=== PATIENT | male | born 1955 | race Caucasian/White ===

== ENCOUNTER 2018-04-29 05:20 | Day surgery (SDC) | payer OTHER ==
[~2018-04-29] VITALS: Ht 162.6 cm; Wt 75.0 kg
--- NOTE | ~2018-04-29 | OP ---
PATIENT NAME: ARIANE FLORES MEDICAL RECORD: [id number] :55 LOCATION:D.OPS ADMISSION DATE: SURGEON: CHLOE DENNIS MD DATE OF OPERATION: 04/29/2018 PREOPERATIVE DIAGNOSES: 1. Gastroesophageal reflux. 2. Band-like upper abdominal pain. 3. Postprandial nausea. 4. Dysphagia. 4. Hematemesis. POSTOPERATIVE DIAGNOSES: 1. Gastroesophageal reflux. 2. Band-like upper abdominal pain. 3. Postprandial nausea. 4. Dysphagia. 4. Hematemesis. 5. Multiple shallow linear ulcers in the antrum of the stomach. 6. Large hiatal hernia. PROCEDURES: 1. Esophagogastroduodenoscopy with antral biopsies. 2. Esophageal dilation to 54-Wolof with a vgxetmx-cjb-phhwuaam balloon. SURGEON: Chloe Dennis MD NURSE RECRUITER: None. BLOOD LOSS: Minimal. ANESTHESIA: IV sedation. COMPLICATIONS: None. The risks, possible complications, and alternatives to the procedure were explained to the patient. He elects to proceed. ENDOSCOPIC COURSE: The patient was conveyed to the endoscopy suite electively on 04/29/2018. IV sedation was induced by the anesthesia staff. A bite block was inserted. A gastroscope was inserted into the mouth. It was advanced easily into the hypopharynx. The esophagus was easily intubated as were the stomach and duodenum. Upon withdrawal, retroflexed and angulus views were obtained. Antral biopsies were obtained. I advanced the rwwheud-giw-boiqsyjg balloon. I then performed sequential balloon dilations of the entire esophagus to 54-Wolof. The balloon dilator and the gastroscope were removed. I then readvanced the gastroscope and examined the esophagus and stomach. There had been no evidence of false passage or perforation. The endoscope was then withdrawn under direct vision. I am going to recommend that the patient undergo an abdominal ultrasound as I really did not find a reason for his postprandial nausea and vomiting other than the linear ulcers, which could account for his hematemesis. I am going to recommend that his Prilosec be changed from a p.r.n. basis to a nightly basis. I will see the patient on a p.r.n. basis. There is no need for the patient to OPERATIVE REPORT [id number] ARIANE FLORES follow up with me in the office unless he develops a complication related to this operative procedure. TRANSINT:[id number] Voice Confirmation ID: [id number] DOCUMENT ID: [id number] CHLOE DENNIS MD at 1525 CC: KENDELL SEPULVEDA THOMAS NATHAN MD, CHLOE TORRE MD, SHILPA,[id number] JENNIFERJIM DICTATION DATE: 04/29/18920 NEWS WRITER: 04/29/18 1052 [facility] 04/29/18 [place] [id number]
--- NOTE | ~2018-04-29 | HP ---
PATIENT: ARIANE FLORES MEDICAL RECORD: [id number] ACCOUNT: [id number] LOCATION:DNED : 55 ADMISSION DATE: 04/29/18 PCP: No PCP HISTORY AND PHYSICAL EXAMINATION HISTORY OF PRESENT ILLNESS: The patient is here for EGD with esophageal dilation. He has had hematemesis. Also, dysphagia at the level of the lower esophageal sphincter. Also abdominal pain. He states he has band-like abdominal pain after eating food. He states also that he has reflux, particularly at night. He sleeps on 2 pillows. He does have some degree of volume reflux and refluxes up into the back of his throat at night. He is only taking his omeprazole on a p.r.n. basis. The EGD was to be performed at the assisted, but we were unable to get an IV started and for that reason, the patient has been moved to the hospital for his endoscopic procedure. PAST MEDICAL AND SURGICAL HISTORY: TB, hypertension, reactive airway disease, asthma, gastroesophageal reflux, urinary retention. HOME MEDICINES: Acetaminophen, atorvastatin, ibuprofen, lisinopril, Flomax, omeprazole, Singulair. PHYSICAL EXAMINATION: GENERAL: The patient does not appear acutely ill. He does appear chronically ill. VITAL SIGNS: Reviewed. EARS: External ears appear normal. EYES: Extraocular movements are intact. NECK: Trachea is midline. CHEST: No intercostal retractions. PULMONARY: Nonlabored, no stridor. ABDOMEN: Nontender. IMPRESSION: 1. Gastroesophageal reflux. 2. Hematemesis. 3. Dysphagia. 4. Band-like abdominal pain. PLAN: EGD with esophageal dilation. TRANSINT:[id number] Voice Confirmation ID: [id number] DOCUMENT ID: [id number] CHLOE DENNIS MD at 1525 CC: KENDELL SEPULVEDA THOMAS NATHAN MD, CHLOE TORRE MD, SHILPA,[id number] JIM ALVAREZ DICTATION DATE: 04/29/18830 [employer] SUPERVISOR: 04/29/18 1012 [facility] 04/29/18 [place] [id number] [place] [address]
[2018-04-29] MEDS ORDERED: ZESTRIL20 MG PO (06:11)
[2018-04-29] MEDS ORDERED: OMEPRAZOLE20 M1 PO (06:12)
[2018-04-29] MEDS ORDERED: FLOMAX0.4 MG PO (06:12)
[2018-04-29 06:22] VITALS: BP 137/69; Ht 162.6 cm; Wt 75.0 kg
== END 2018-04-29 10:33 | disposition home or self-care (01) ==
LOC: D.OPS 05:20
DX: K29.50 Unspecified chronic gastritis without bleeding (principal); K44.9 Diaphragmatic hernia without obstruction or gangrene; K25.9 Gastric ulcer, unspecified as acute or chronic, without hemorrhage or perforation; I10 Essential (primary) hypertension; J45.909 Unspecified asthma, uncomplicated; R33.9 Retention of urine, unspecified; Z86.11 Personal history of tuberculosis; Z79.1 Long term (current) use of non-steroidal anti-inflammatories (NSAID); Z79.899 Other long term (current) drug therapy; Z01.812 Encounter for preprocedural laboratory examination